=== PATIENT | female | born 1975 | race Caucasian/White ===

== ENCOUNTER 2017-12-01 15:22 | Emergency (ER) | payer SELFPAY ==
[~2017-12-01] VITALS: Ht 162.6 cm; Wt 99.0 kg
[~2017-12-01 15:22] MED LIST: EFFE150C PO; PENI250T59 PO; PRIL20CA PO; SEASTAB2 PO
[2017-12-01 15:27] VITALS: BP 154/64; PULSE 84; RESP 16; TEMP 98.2; O2SAT 99
[2017-12-01] MEDS ORDERED: ALPR.5 PO (15:45)
[2017-12-01] MEDS ORDERED: CELE40TA PO (15:45)
--- NOTE | 2017-12-01 15:50 | PD ---
HPI Chief Complaint: GI Complaint Time Seen by Provider: 15:48 Travel History International Travel<30 days: No Contact w/Intl Traveler<30days: No Traveled to known affect area: No History of Present Illness HPI Patient states that she has a chronic history of loose stools/diarrhea since her cholecystectomy. She normally controls this with taking [id number] Imodium. However over the past day or so she has had increased amount of diarrhea along with some episodes of nausea but without any active vomiting. Patient also has had some abdominal diffuse discomfort described as pressure and rated about a 4 out of 10. 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 Past Medical History ?: Not LMP: 2 WEEKS Social History Tobacco Use: No Allergies-Medications (Allergen,Severity, Reaction): Coded Allergies: No Known Allergies (Verified Adverse Reaction, Unknown, 12/01/17) Reported Meds & Prescriptions Reported Meds & Active Scripts Active Ultram (Tramadol HCl) 50 Mg Tab 50 Mg PO Q6H PRN Zofran Odt (Ondansetron Odt) 4 Mg Tab 4 Mg SL Q6HR PRN Flagyl (Metronidazole) 500 Mg Tab 500 Mg PO QID 7 Days Cipro (Ciprofloxacin HCl) 500 Mg Tab 500 Mg PO BID 5 Days Reported Prilosec (Omeprazole Magnesium) 20 Mg Tab 1 Tab PO DAILY Xanax (Alprazolam) 0.5 Mg Tab 0.5 Mg PO Q8H PRN Celexa (Citalopram Hydrobromide) 40 Mg Tab 40 Mg PO DAILY Review of Systems Except as stated in HPI: all other systems reviewed are Neg General / Constitutional: No: Fever Eyes: No: Visual changes HENT: No: Headaches Cardiovascular: No: Chest Pain or Discomfort Respiratory: No: Shortness of Breath Gastrointestinal: Positive: Diarrhea, Abdominal Pain Genitourinary: No: Dysuria Musculoskeletal: No: Pain Skin: No Rash Neurologic: No: Weakness Psychiatric: No: Depression Endocrine: No: Polydipsia Hematologic/Lymphatic: No: Easy Bruising Physical Exam Narrative GENERAL: SKIN: Warm and dry. HEAD: Atraumatic. Normocephalic. EYES: Pupils equal and round. No scleral icterus. No injection or drainage. ENT: No nasal bleeding or discharge. Mucous membranes pink and moist. NECK: Trachea midline. No JVD. CARDIOVASCULAR: Regular rate and rhythm. RESPIRATORY: No accessory muscle use. Clear to auscultation. Breath sounds equal bilaterally. GASTROINTESTINAL: Abdomen soft, non-tender, nondistended. MUSCULOSKELETAL: Extremities without clubbing, cyanosis, or edema. No obvious deformities. NEUROLOGICAL: Awake and alert. No obvious cranial nerve deficits. Motor grossly within normal limits. Five out of 5 muscle strength in the arms and legs. Normal speech. PSYCHIATRIC: Appropriate mood and affect; insight and judgment normal. Data Data Last Documented VS Orders Orders Complete Blood Count With Diff (12/01/17 16:02) Comprehensive Metabolic Panel (12/01/17 16:02) Lipase (12/01/17 16:02) Urinalysis - C+S If Indicated (12/01/17 16:02) Iv Access Insert/Monitor (12/01/17 16:02) Ecg Monitoring (12/01/17 16:02) Oximetry (12/01/17 16:02) NPO (12/01/17 16:02) Sodium Chloride 0.9% Flush (Ns Flush) (12/01/17 16:15) Urine Culture (12/01/17 16:20) Ciprofloxacin (Cipro) (12/01/17 17:45) Metronidazole (Flagyl) (12/01/17 17:45) Ondansetron Odt (Zofran Odt) (12/01/17 17:45) Tramadol (Ultram) (12/01/17 17:45) Ed Discharge Order (12/01/17 17:35) Labs Laboratory Tests Test 12/01/17 16:10 12/01/17 16:20 White Blood Count 7.3 TH/MM3 Red Blood Count 4.82 MIL/MM3 Hemoglobin 9.4 GM/DL Hematocrit 29.2 % Mean Corpuscular Volume 60.6 FL Mean Corpuscular Hemoglobin 19.5 PG Mean Corpuscular Hemoglobin Concent 32.2 % Red Cell Distribution Width 18.6 % Platelet Count 380 TH/MM3 Mean Platelet Volume 7.4 FL Neutrophils (%) (Auto) 65.4 % Lymphocytes (%) (Auto) 24.3 % Monocytes (%) (Auto) 7.8 % Eosinophils (%) (Auto) 2.0 % Basophils (%) (Auto) 0.5 % Neutrophils # (Auto) 4.8 TH/MM3 Lymphocytes # (Auto) 1.8 TH/MM3 Monocytes # (Auto) 0.6 TH/MM3 Eosinophils # (Auto) 0.1 TH/MM3 Basophils # (Auto) 0.0 TH/MM3 CBC Comment AUTO DIFF Differential Comment AUTO DIFF CONFIRMED Ovalocytes 1+ Blood Urea Nitrogen 10 MG/DL Creatinine 0.61 MG/DL Random Glucose 90 MG/DL Total Protein 7.2 GM/DL Albumin 3.4 GM/DL Calcium Level 8.4 MG/DL Alkaline Phosphatase 113 U/L Aspartate Amino Transf (AST/SGOT) 33 U/L Alanine Aminotransferase (ALT/SGPT) 56 U/L Total Bilirubin 0.5 MG/DL Sodium Level 139 MEQ/L Potassium Level 3.2 MEQ/L Chloride Level 105 MEQ/L Carbon Dioxide Level 27.8 MEQ/L Anion Gap 6 MEQ/L Estimat Glomerular Filtration Rate 108 ML/MIN Lipase 518 U/L Urine Color YELLOW Urine Turbidity CLOUDY Urine pH 6.0 Urine Specific Webb 1.027 Urine Protein TRACE mg/dL Urine Glucose (UA) NEG mg/dL Urine Ketones TRACE mg/dL Urine Occult Blood NEG Urine Nitrite NEG Urine Bilirubin NEG Urine Leukocyte Esterase NEG Urine RBC 0-3 /hpf Urine WBC 9-14 /hpf Urine Squamous Epithelial Cells > 8 /hpf Urine Bacteria FEW /hpf Urine Mucus MOD /lpf Microscopic Urinalysis Comment CULTURE INDICATED MDM Medical Decision Making Medical Screen Exam Complete: Yes Emergency Medical Condition: Yes Medical Record Reviewed: Yes Differential Diagnosis Hepatitis versus pancreatitis versus colitis versus diverticulitis Narrative Course UA is consistent with a UTI CBC does not show any leukocytosis does show some mild anemia of 9.4/29.2, it is microcytic in nature also normal platelet count Electrolytes were within normal limits normal kidney function, normal liver functions and also a lipase that was mildly elevated at 518 which is not quite 2 -1/2 times the normal to suggest pancreatitis however this may be an early sign of pancreatitis. Diagnosis Primary Impression: UTI Additional Impression: Early pancreatitis Patient Instructions: Full Liquid Diet (GEN), Gastroenteritis (ED), General Instructions, Pancreatitis (ED), Urinary Tract Infection in Women (DC) Scripts Tramadol (Ultram) 50 Mg Tab 50 MG PO Q6H Y for PAIN, #14 TAB 0 Refills Prov: Lai Martin MD 12/01/17 Ondansetron Odt (Zofran Odt) 4 Mg Tab 4 MG SL Q6HR Y for Nausea/Vomiting, #15 TAB 0 Refills Prov: Lai Martin MD 12/01/17 Metronidazole (Flagyl) 500 Mg Tab 500 MG PO QID for Infection for 7 Days, #21 TAB 0 Refills Prov: Lai Martin MD 12/01/17 Ciprofloxacin (Cipro) 500 Mg Tab 500 MG PO BID for Infection for 5 Days, #10 TAB 0 Refills Prov: Lai Martin MD 12/01/17 Disposition: 01 DISCHARGE HOME Condition: Stable Lai Martin MD Dec 01, 2017 15:50
[2017-12-01] MEDS ORDERED: PRIL20TA2 PO (16:05)
[2017-12-01] MEDS ORDERED: SODIUM CHLORIDE 0.9% FLUSH 10 ML FLUSH IV FLUSH PRN (16:15)
[2017-12-01 16:31] LABS: BLOOD, URINE NEG (NEG); GLUCOSE,URINE NEG (NEG); KETONE, URINE TRACE mg/dL (NEG); NITRITE,URINE NEG (NEG); URINE LEUKOCYTE ESTERASE NEG (NEG)
[2017-12-01 16:37] LABS: BILIRUBIN, URINE NEG (NEG); URINE COLOR YELLOW (YELLW/STRAW)
[2017-12-01 16:38] LABS: BACTERIA, URINE FEW /hpf; MUCUS URINE MOD /lpf (OCC); RBC, URINE 0-3 /hpf (0-3); SQUAMOUS EPITHELIAL CELL URINE > 8 /hpf (0-5)
[2017-12-01 16:39] LABS: CHLORIDE 105 MEQ/L (98-107); SODIUM (NA) 139 MEQ/L (136-145)
[2017-12-01 16:42] LABS: ALBUMIN 3.4 GM/DL (3.4-5.0); BICARBONATE 27.8 MEQ/L (21.0-32.0); CALCIUM 8.4 MG/DL (8.5-10.1)
[2017-12-01 16:43] LABS: AUTOMATED NEUTROPHIL # 4.8 TH/MM3 (1.8-7.7); BASOPHIL % 0.5 % (0.0-2.0); BLOOD UREA NITROGEN 10 MG/DL (7-18); EOSINOPHIL # 0.1 TH/MM3 (0-0.4); GLUCOSE,RANDOM 90 MG/DL (74-106); HEMATOCRIT 29.2 % (35.0-46.0); HEMOGLOBIN 9.4 GM/DL (11.6-15.3); LYMPH % 24.3 % (9.0-44.0); LYMPHOCYTE # 1.8 TH/MM3 (1.0-4.8); MEAN CELL VOLUME 60.6 FL (80.0-100.0); MEAN CORPUSCULAR HEMOGLOBIN 19.5 PG (27.0-34.0); MEAN CORPUSCULAR HGB CONC 32.2 % (32.0-36.0); MEAN PLATELET VOLUME 7.4 FL (7.0-11.0); MONO % 7.8 % (0.0-8.0); MONOCYTE # 0.6 TH/MM3 (0-0.9); NEUT % 65.4 % (16.0-70.0); PLATELET COUNT 380 TH/MM3 (150-450); RED BLOOD COUNT 4.82 MIL/MM3 (4.00-5.30); RED CELL DISTRIBUTION WIDTH 18.6 % (11.6-17.2); WHITE BLOOD COUNT 7.3 TH/MM3 (4.0-11.0)
[2017-12-01 16:45] VITALS: RESP 18; O2SAT 98
[2017-12-01 16:45] LABS: ALT (GPT) 56 U/L (10-53); AST (GOT) 33 U/L (15-37); CREATININE 0.61 MG/DL (0.50-1.00); GLOMERULAR FILTRATION RATE 108 ML/MIN (>89)
[2017-12-01 16:47] LABS: TOTAL BILIRUBIN ADULT 0.5 MG/DL (0.2-1.0); TOTAL PROTEIN 7.2 GM/DL (6.4-8.2)
[2017-12-01 16:48] LABS: ALKALINE PHOSPHATASE 113 U/L (45-117)
[2017-12-01 17:25] LABS: OVALOCYTES 1+ (NORMAL)
[2017-12-01] MEDS ORDERED: CIPR-9 PO (17:31)
[2017-12-01] MEDS ORDERED: METR-1 PO (17:31)
[2017-12-01] MEDS ORDERED: ZOFR4TAB3 SL (17:31)
[2017-12-01] MEDS ORDERED: TRAM50 PO (17:31)
[2017-12-01] MEDS ORDERED: metroNIDAZOLE 500 MG TAB PO ONE (17:45)
[2017-12-01] MEDS ORDERED: ONDANSETRON ODT 4 MG TAB PO ONE (17:45)
[2017-12-01] MEDS ORDERED: CIPROFLOXACIN 500 MG TAB PO ONE (17:45)
[2017-12-01] MEDS ORDERED: traMADol HCL 50 MG TAB PO ONE (17:45)
[2017-12-01 17:47] VITALS: BP 124/59; PULSE 65; RESP 16; O2SAT 99
== END 2017-12-01 18:53 | disposition home or self-care (01) ==
LOC: PHED 15:22
DX: N39.0 Urinary tract infection, site not specified (principal); K85.90 Acute pancreatitis without necrosis or infection, unspecified; D64.9 Anemia, unspecified; F32.9 Major depressive disorder, single episode, unspecified; F41.9 Anxiety disorder, unspecified; Z79.899 Other long term (current) drug therapy
CPT/HCPCS: 80053; 81001; 83690; 85025; 87086; 99283